=== PATIENT | female | born 1985 | race Caucasian/White ===

== ENCOUNTER 2019-09-30 14:54 | Emergency (ER) | payer SELFPAY ==
[~2019-09-30] VITALS: Ht 167.6 cm; Wt 102.3 kg
[2019-09-30 15:16] VITALS: TEMP 98.2
[2019-09-30] MEDS ORDERED: LANTUS100 U/ML SQ (16:13)
[2019-09-30] MEDS ORDERED: HUMALOG100 U/ML SQ (16:13)
[2019-09-30 16:38] LABS: COLLECTION METHOD CLEAN CATCH
[2019-09-30] MEDS ORDERED: ELIMITE TOP (16:41)
[2019-09-30 17:20] LABS: BUDDING YEAST Present /hpf; PH 7 (5-8); URINE APPEARANCE Turbid; URINE BACTERIA Moderate /hpf; URINE BILIRUBIN Negative (NEGATIVE); URINE BLOOD 1+ (NEGATIVE); URINE COLOR Amber; URINE GLUCOSE 3+ (NEGATIVE); URINE KETONE Trace (NEGATIVE); URINE LEUKOCYTE ESTERASE 3+ (NEGATIVE); URINE NITRATE Positive (NEGATIVE); URINE PROTEIN(semi-quant) 1+ (NEGATIVE); URINE UROBILINOGEN Negative (NEGATIVE)
[2019-09-30] MEDS ORDERED: PHENERGAN 25 TA25 MG PO (17:34)
[2019-09-30] MEDS ORDERED: BACTRIM DS 8001 TAB PO (17:36)
[2019-09-30 18:00] VITALS: BP 128/78; PULSE 79
== END 2019-09-30 18:00 | disposition home or self-care (01) ==
LOC: COL.ER 14:54
PROVIDERS: Nurse Practitioner
DX: T14.8XXA Other injury of unspecified body region, initial encounter (principal); N39.0 Urinary tract infection, site not specified; R21 Rash and other nonspecific skin eruption; E10.9 Type 1 diabetes mellitus without complications; F17.210 Nicotine dependence, cigarettes, uncomplicated; W57.XXXA Bitten or stung by nonvenomous insect and other nonvenomous arthropods, initial encounter

== ENCOUNTER 2019-10-02 14:42 | Emergency (ER) | payer SELFPAY ==
[~2019-10-02] VITALS: Ht 170.2 cm; Wt 104.5 kg
[~2019-10-02 14:42] MED LIST: BACTRIM DS 8001 TAB PO; ELIMITE TOP; HUMALOG100 U/ML SQ; LANTUS100 U/ML SQ; PHENERGAN 25 TA25 MG PO
[2019-10-02 15:04] VITALS: TEMP 99.4
[2019-10-02 15:35] LABS: COLLECTION METHOD CLEAN CATCH
[2019-10-02 15:48] LABS: BASO % 0.3 % (0.0-2.0); EOS # 0.4 (0.0-0.7); GRAN # 6.5 (1.4-6.5); GRAN % 72.4 % (42.2-75.2); HEMOGLOBIN 10.4 g/dl (12.5-16.0); LYMPH # 1.6 (1.2-3.4); LYMPH % 17.8 % (20.0-51.0); MEAN CELL VOLUME 81 fl (80.0-100.0); MEAN CORPUSCULAR HEMOGLOBIN 24 pg (27.0-31.0); MEAN CORPUSCULAR HGB CONC 30 g/dl (33.0-37.0); MEAN PLATELET VOLUME 10.6 fl (7.4-10.4); MONO # 0.5 (0.1-0.6); MONO % 5.3 % (1.7-9.3); PLATELET COUNT 395 K/mm3 (130-400); RED BLOOD COUNT 4.31 M/mm3 (4.10-5.30); REDCELL DISTRIBUTION WIDTH-CV 16.1 % (11.5-14.5)
[2019-10-02 15:50] LABS: ALANINE AMINOTRANSFERASE 11 U/L (9-52); ALBUMIN 3.9 gm/dL (3.5-5.0); ALKALINE PHOSPHATASE 234 U/L (50-136); ANION GAP 13 mmol/L (7-16); AST,SGOT 37 U/L (15-37); BILIRUBIN,TOTAL < 0.1 mg/dL (0.0-1.0); BLOOD UREA NITROGEN 4 mg/dL (7-17); CALCIUM 8.6 mg/dL (8.4-10.2); CARBON DIOXIDE 22 mmol/L (22-30); CHLORIDE 99 mmol/L (98-107); CREATININE, serum 0.77 (0.52-1.25); GLUCOSE 307 mg/dL (74-106); POTASSIUM 3.8 mmol/L (3.4-5.0); SODIUM 133 mmol/L (137-145); TOTAL PROTEIN 7.6 gm/dL (6.4-8.2)
[2019-10-02 15:52] LABS: ACETAMINOPHEN < 10 ug/mL (10-30); ALCOHOL(ethanol),MEDICAL < 10 mg/dL; SALICYLATE < 1.0 mg/dL
[2019-10-02 15:57] LABS: PH 7 (5-8); URINE APPEARANCE Hazy; URINE BACTERIA Rare /hpf; URINE BILIRUBIN Negative (NEGATIVE); URINE BLOOD Negative (NEGATIVE); URINE COLOR Straw; URINE GLUCOSE 3+ (NEGATIVE); URINE KETONE Trace (NEGATIVE); URINE LEUKOCYTE ESTERASE 1+ (NEGATIVE); URINE NITRATE Negative (NEGATIVE); URINE PROTEIN(semi-quant) Negative (NEGATIVE); URINE RBC 0-2 /hpf; URINE UROBILINOGEN Negative (NEGATIVE)
[2019-10-02 16:26] LABS: TRICYCLIC ANTIDEPRESS URINE NEGATIVE
[2019-10-03 07:30] VITALS: BP 125/72; PULSE 86
== END 2019-10-03 08:20 ==
LOC: COL.ER 14:42
PROVIDERS: Nurse Practitioner
DX: T48.5X1A Poisoning by other anti-common-cold drugs, accidental (unintentional), initial encounter (principal); T40.4X2A Poisoning by other synthetic narcotics, intentional self-harm, initial encounter; R45.851 Suicidal ideations; F39 Unspecified mood [affective] disorder; F17.210 Nicotine dependence, cigarettes, uncomplicated; E10.9 Type 1 diabetes mellitus without complications; F32.9 Major depressive disorder, single episode, unspecified
CPT/HCPCS: J1815; J2550; J7030